=== PATIENT | female | born 1970 | race African-American/Black ===

== ENCOUNTER 2016-12-31 05:46 | Day surgery (SDC) | payer OTHER ==
[~2016-12-31] VITALS: Ht 160 cm; Wt 86.6 kg
[2016-12-31] MEDS ORDERED: ONDANSETRON 4 MG/2 ML VIAL IVP PRN ×2 (07:25)
[2016-12-31] MEDS ORDERED: IBUPROFEN 800 MG TAB PO PRN ×2 (07:25)
[2016-12-31] MEDS ORDERED: ACETAMINOPHEN/CODEINE 300/30MG 1 TAB PO PRN ×2 (07:25)
[2016-12-31] MEDS ORDERED: MORPHINE SULFATE 4 MG/ML SYR IM/IVP PRN ×2 (07:25)
[2016-12-31] MEDS ORDERED: PROPOFOL 200 MG/20 ML VIAL IV ONE (07:45)
[2016-12-31] MEDS ORDERED: fentaNYL 0.05 MG/ML VIAL ONE (08:12)
[2016-12-31] MEDS ORDERED: MIDAZOLAM 2 MG/2 ML VIAL ONE (08:12)
[2016-12-31] MEDS ORDERED: MIDAZOLAM 2 MG/2 ML VIAL IV ONE (08:25)
[2016-12-31] MEDS ORDERED: METOCLOPRAMIDE 10 MG/2 ML INJ VIAL IVP PRN (08:25)
[2016-12-31] MEDS ORDERED: MORPHINE SULFATE 2 MG/ML SYR IVP PRN (08:25)
[2016-12-31] MEDS ORDERED: MORPHINE SULFATE 4 MG/ML SYR IVP PRN ×2 (08:25)
[2016-12-31] MEDS ORDERED: MORPHINE SULFATE 4 MG/ML SYR ONE (09:10)
[2016-12-31] MEDS ORDERED: ONDANSETRON 4 MG/2 ML VIAL ONE (09:14)
== END 2016-12-31 10:23 | disposition home or self-care (01) ==
LOC: MDS 05:46 → MMU 06:01 → MDS 10:23
PROVIDERS: ATTEND Obstetrics & Gynecology
DX: N92.1 Excessive and frequent menstruation with irregular cycle (principal); D25.9 Leiomyoma of uterus, unspecified; I10 Essential (primary) hypertension; J45.909 Unspecified asthma, uncomplicated; M19.90 Unspecified osteoarthritis, unspecified site; F32.9 Major depressive disorder, single episode, unspecified; Z90.721 Acquired absence of ovaries, unilateral; Z98.890 Other specified postprocedural states; Z79.899 Other long term (current) drug therapy
CPT/HCPCS: 58120; J2250; J2270; J2405; J2704; J3010; J7120

== ENCOUNTER 2022-03-26 17:27 | Emergency (ER) | payer OTHER ==
[~2022-03-26] VITALS: Ht 162.6 cm; Wt 84.4 kg
[2022-03-26 17:38] VITALS: BP 145/87
--- NOTE | 2022-03-26 17:55 | NUR ---
Called poision control spoke to Nicolle. No observation time given. Pt may have adverse GI symptoms. No further monitoring needed.
[2022-03-26 18:00] LABS: BASOPHILS % (AUTO) 0.6 % (0.0-2.0); EOSINOPHILS # (AUTO) 0.1 K/uL (0-0.4); EOSINOPHILS % (AUTO) 1.4 % (0.0-4.0); HEMATOCRIT 37.1 % (36-48); HEMOGLOBIN 12.1 g/dL (12.0-16.0); LYMPHOCYTES # (AUTO) 0.9 K/uL (2.5-16.5); MEAN CORPUSCULAR HEMOGLOBIN 28 pg (27-31); MEAN CORPUSCULAR HGB CONC 33 g/dL (33-37); MEAN CORPUSCULAR VOLUME 85.3 fL (80-94); MONOCYTES # (AUTO) 0.4 K/uL (0.8-1.0); MONOCYTES % (AUTO) 7.2 % (1.7-9.3); NEUTROPHILS # (AUTO) 4.8 K/uL (1.8-7.7); NEUTROPHILS % (AUTO) 76.8 % (42.2-75.2); PLATELET COUNT (AUTO) 343 K/uL (140-450); RED BLOOD CELL COUNT(AUTO) 4.35 MIL/uL (4.20-5.40); RED CELL DISTRIBUTION WIDTH 14.7 % (11.6-13.7); WHITE BLOOD COUNT (AUTO) 6.2 K/uL (4.8-10.8)
[2022-03-26 18:11] LABS: BARBITURATE, URINE NEGATIVE ng/ml (NEG <=200); BENZODIAZEPINE, URINE NEGATIVE ng/mL (NEG <=200); CANNABINOID, URINE NEGATIVE ng/mL (NEG <=50); COCAINE, URINE NEGATIVE ng/mL (NEG <=300); OPIATE, URINE NEGATIVE ng/mL (NEG <=2000); PHENCYCLIDINE SCREEN,URINE NEGATIVE ng/mL (NEG <=25)
--- NOTE | 2022-03-26 18:11 | NUR ---
Nicolle and PCR dropped off at lab.
[2022-03-26 18:23] LABS: ACETAMINOPHEN < 0.5 ug/ml (10-30); ALBUMIN 3.7 g/dL (3.4-5.0); ANION GAP 14.7 (8-16); ASPARTATE AMINOTRANSFERASE 21 U/L (15-37); CARBON DIOXIDE 28.4 mmol/L (21-32); CHLORIDE 103 mmol/L (98-107); CREATININE 1.2 mg/dL (0.6-1.3); GFR ARICAN-AMERICAN 61 mL/min (>90); GLUCOSE 99 mg/dL (74-106); POTASSIUM 3.1 mmol/L (3.5-5.1); SALICYLATE < 2.8 mg/dL (2.8-20.0); SODIUM SERUM 143 mmol/L (136-145); TOTAL BILIRUBIN 0.4 mg/dL (0.0-1.0); UREA NITROGEN, BLOOD 12 mg/dL (7-18)
--- NOTE | 2022-03-26 20:00 | NUR ---
RESTING QUIETLY IN ROOM, IN NAD
[2022-03-26] MEDS ORDERED: POTASSIUM CHLORIDE 10 MEQ TABER PO ONE (20:05)
--- NOTE | 2022-03-26 21:52 | NUR ---
AWAITING TELE-PSYCH EVALUATION
--- NOTE | 2022-03-26 22:00 | NUR ---
TELE-PSYCH EVAL IN PROGRESS
--- NOTE | 2022-03-27 00:16 | NUR ---
Packet received for placement. Has been faxed to the following facilities [facility]
--- NOTE | 2022-03-27 02:00 | NUR ---
resting in bed with eyes closed, respirations regular and unlabored
--- NOTE | 2022-03-27 06:00 | NUR ---
CONTINUES TO REST COMFORTABLY WITH EYES CLOSED
--- NOTE | 2022-03-27 06:20 | NUR ---
SPOKE WITH INTAKE NURSE AT [facility]. THEY ACCEPT PT AND PT WILL GO TO ROOM 144. THEY REQUEST THAT WE NOTIFY THEM WHEN ETA IS KNOWN. RECEIVING DR IS DR LÓPEZ. DIRECT LINE # [phone]
--- NOTE | 2022-03-27 08:43 | NUR ---
PT IS HAVING BREAKFAST IN BED.
--- NOTE | 2022-03-27 11:54 | NUR ---
CALLED [facility] AND SPOKE WITH SANDY CAM RN TO INFORM ABOUT THE ETA FOR THE PT ARRIVAL IS 90 MIN PER EMS.
[2022-03-27 11:56] VITALS: BP 112/70
--- NOTE | 2022-03-27 13:49 | NUR ---
The patient's care was reviewed and supervised by Agnes Otero RN.
== END 2022-03-27 11:57 ==
LOC: MED 17:27
DX: R45.851 Suicidal ideations (principal); Z20.822 Contact with and (suspected) exposure to COVID-19
CPT/HCPCS: 36415; 80053; 80305; 84702; 85025; 87426; 87635; 93005; 99285; G0480; G0482

== ENCOUNTER 2022-10-02 12:48 | Emergency (ER) | payer MEDICAID, OTHER ==
[~2022-10-02] VITALS: Ht 167.6 cm; Wt 122.5 kg
[2022-10-02 12:50] VITALS: BP 123/85
[2022-10-02 13:44] LABS: BASOPHILS % (AUTO) 0.3 % (0.0-2.0); EOSINOPHILS # (AUTO) 0.1 K/uL (0-0.4); HEMATOCRIT 37.4 % (36-48); HEMOGLOBIN 12.3 g/dL (12.0-16.0); LYMPHOCYTES # (AUTO) 0.8 K/uL (2.5-16.5); LYMPHOCYTES % (AUTO) 18.7 % (20.5-51.1); MEAN CORPUSCULAR HEMOGLOBIN 27 pg (27-31); MEAN CORPUSCULAR HGB CONC 33 g/dL (33-37); MEAN CORPUSCULAR VOLUME 82.9 fL (80-94); MONOCYTES # (AUTO) 0.3 K/uL (0.8-1.0); MONOCYTES % (AUTO) 6.2 % (1.7-9.3); NEUTROPHILS % (AUTO) 71.8 % (42.2-75.2); PLATELET COUNT (AUTO) 328 K/uL (140-450); RED BLOOD CELL COUNT(AUTO) 4.51 MIL/uL (4.20-5.40); RED CELL DISTRIBUTION WIDTH 14.6 % (11.6-13.7); WHITE BLOOD COUNT (AUTO) 4.2 K/uL (4.8-10.8)
[2022-10-02 14:00] LABS: ALBUMIN 3.7 g/dL (3.4-5.0); ANION GAP 10.8 (8-16); CREATININE 1.1 mg/dL (0.6-1.3); POTASSIUM 3.8 mmol/L (3.5-5.1); TOTAL BILIRUBIN 0.4 mg/dL (0.0-1.0)
[2022-10-02] MEDS ORDERED: KETOROLAC 60 MG/2 ML VIAL IM ONE (15:10)
[2022-10-02] MEDS ORDERED: IBUP-2213 PO (15:38)
[2022-10-02] MEDS ORDERED: ACET-8905 PO (15:38)
[2022-10-02] MEDS ORDERED: ONDA8TAB87 PO (15:38)
[2022-10-02] MEDS ORDERED: MEDR10TA PO (15:38)
--- NOTE | 2022-10-02 15:44 | NUR ---
Patient discharged with v/s stable. Written and verbal after care instructions given and explained. Patient alert, oriented and verbalized understanding of instructions. Ambulatory with steady gait. All questions addressed prior to discharge. ID band removed. Patient advised to follow up with PMD. Rx of PROVERA, NORCO given. Patient educated on indication of medication including possible reaction and side effects. Opportunity to ask questions provided and answered.
== END 2022-10-02 15:44 | disposition home or self-care (01) ==
LOC: MED 12:48
DX: N93.8 Other specified abnormal uterine and vaginal bleeding (principal); D25.9 Leiomyoma of uterus, unspecified; I10 Essential (primary) hypertension; F17.200 Nicotine dependence, unspecified, uncomplicated; Z98.890 Other specified postprocedural states
CPT/HCPCS: 36415; 80053; 85025; 96372; 99283; J1885

== ENCOUNTER 2022-10-13 10:34 | Emergency (ER) | payer MEDICAID ==
[~2022-10-13] VITALS: Ht 165.1 cm; Wt 85.7 kg
[~2022-10-13 10:34] MED LIST: ACET-8905 PO; IBUP-2213 PO; MEDR10TA PO; ONDA8TAB87 PO
[2022-10-13 10:36] VITALS: BP 142/80; PULSE 79; RESP 17; TEMP 97.4; O2SAT 99
[2022-10-13 11:21] LABS: BASOPHILS % (AUTO) 0.6 % (0.0-2.0); EOSINOPHILS # (AUTO) 0.2 K/uL (0-0.4); EOSINOPHILS % (AUTO) 3.1 % (0.0-4.0); HEMATOCRIT 38.5 % (36-48); HEMOGLOBIN 12.6 g/dL (12.0-16.0); LYMPHOCYTES # (AUTO) 0.9 K/uL (2.5-16.5); LYMPHOCYTES % (AUTO) 16.2 % (20.5-51.1); MEAN CORPUSCULAR HEMOGLOBIN 28 pg (27-31); MEAN CORPUSCULAR HGB CONC 33 g/dL (33-37); MEAN CORPUSCULAR VOLUME 84.1 fL (80-94); MONOCYTES # (AUTO) 0.4 K/uL (0.8-1.0); MONOCYTES % (AUTO) 7.4 % (1.7-9.3); NEUTROPHILS # (AUTO) 3.9 K/uL (1.8-7.7); NEUTROPHILS % (AUTO) 72.7 % (42.2-75.2); PLATELET COUNT (AUTO) 306 K/uL (140-450); RED BLOOD CELL COUNT(AUTO) 4.57 MIL/uL (4.20-5.40); RED CELL DISTRIBUTION WIDTH 15.2 % (11.6-13.7); WHITE BLOOD COUNT (AUTO) 5.4 K/uL (4.8-10.8)
[2022-10-13 11:33] LABS: ANION GAP 14.4 (8-16); CARBON DIOXIDE 26.6 mmol/L (21-32); CREATININE 1.2 mg/dL (0.6-1.3)
[2022-10-13 13:35] VITALS: O2SAT 99
--- NOTE | 2022-10-13 13:36 | NUR ---
Patient discharged with v/s stable. Written and verbal after care instructions given and explained. Patient verbalized understanding. Ambulatory with steady gait. All questions addressed prior to discharge. Advised to follow up with PMD.
== END 2022-10-13 13:36 | disposition home or self-care (01) ==
LOC: MED 10:34
DX: N93.8 Other specified abnormal uterine and vaginal bleeding (principal); I10 Essential (primary) hypertension; N18.9 Chronic kidney disease, unspecified; Z79.899 Other long term (current) drug therapy
CPT/HCPCS: 36415; 80048; 85025; 99283

== ENCOUNTER 2023-04-23 13:53 | Emergency (ER) | payer MEDICAID ==
[~2023-04-23] VITALS: Ht 162.6 cm; Wt 68.0 kg
[2023-04-23 13:56] VITALS: BP 118/83; PULSE 83; RESP 16; TEMP 97.8; O2SAT 100
[2023-04-23] MEDS ORDERED: CLOT1CRE82 TP ×2 (14:32→14:51)
== END 2023-04-23 15:57 | disposition home or self-care (01) ==
LOC: MED 13:53
DX: L30.4 Erythema intertrigo (principal); M79.602 Pain in left arm; M79.601 Pain in right arm; Z79.899 Other long term (current) drug therapy
CPT/HCPCS: 73130; 99283

== ENCOUNTER 2023-06-08 17:56 | Emergency (ER) | payer MEDICAID ==
[~2023-06-08] VITALS: Ht 162.6 cm; Wt 68.0 kg
[~2023-06-08 17:56] MED LIST changes: +CLOT1CRE82 TP
[2023-06-08 17:58] VITALS: BP 128/78; PULSE 87; RESP 16; TEMP 96.9; O2SAT 100
[2023-06-08 18:00] VITALS: O2SAT 100
[2023-06-08] MEDS ORDERED: AMLO2.5T PO (18:01)
[2023-06-08] MEDS ORDERED: FERR325E14 PO (18:01)
[2023-06-08 18:44] VITALS: TEMP 96.9
[2023-06-08 19:07] LABS: APPEARANCE,URINE CLEAR (CLEAR); BILIRUBIN,URINE NEGATIVE (NEGATIVE); BLOOD, URINE TRACE-I (NEGATIVE); COLOR,URINE YELLOW (YELLOW); LEUKOCYTE ESTERASE ,URINE 2+ (NEGATIVE); NITRITE, URINE NEGATIVE (NEGATIVE); PROTEIN,URINE NEGATIVE (NEGATIVE); UGLUCOSE NEGATIVE (NEGATIVE); UROBILINOGEN,URINE 0.2 EU/dL (0.2 - 1)
[2023-06-08 19:13] LABS: BASOPHILS # (AUTO) 0.1 K/uL (0.00-0.22); BASOPHILS % (AUTO) 1.5 % (0.0-2.0); EOSINOPHILS # (AUTO) 0.2 K/uL (0-0.4); EOSINOPHILS % (AUTO) 4.7 % (0.0-4.0); HEMOGLOBIN 12.2 g/dL (12.0-16.0); LYMPHOCYTES # (AUTO) 0.9 K/uL (2.5-16.5); LYMPHOCYTES % (AUTO) 24.4 % (20.5-51.1); MEAN CORPUSCULAR HEMOGLOBIN 28 pg (27-31); MEAN CORPUSCULAR HGB CONC 33 g/dL (33-37); MEAN CORPUSCULAR VOLUME 85.9 fL (80-94); MONOCYTES # (AUTO) 0.3 K/uL (0.8-1.0); MONOCYTES % (AUTO) 7.7 % (1.7-9.3); NEUTROPHILS # (AUTO) 2.3 K/uL (1.8-7.7); NEUTROPHILS % (AUTO) 61.7 % (42.2-75.2); PLATELET COUNT (AUTO) 285 K/uL (140-450); RED BLOOD CELL COUNT(AUTO) 4.31 MIL/uL (4.20-5.40); RED CELL DISTRIBUTION WIDTH 13.7 % (11.6-13.7); WHITE BLOOD COUNT (AUTO) 3.8 K/uL (4.8-10.8)
[2023-06-08 19:25] LABS: RBC,URINE 0-5 /HPF (0-5)
[2023-06-08 19:26] LABS: BACTERIA,URINE 1+ /HPF (None Seen); MUCUS,URINE None Seen /LPF (None Seen); SQUAMOUS EPITHELIAL CELL,UR 0-3 (FEW) /LPF (0-3 (FEW))
[2023-06-08 19:56] LABS: ALANINE AMINOTRANSFERASE 15 U/L (12-78); ALBUMIN 3.2 g/dL (3.4-5.0); ALKALINE PHOSPHATASE 79 U/L (50-136); ASPARTATE AMINOTRANSFERASE 11 U/L (15-37); BILIRUBIN,DIRECT 0.1 mg/dL (0.0-0.3); TOTAL BILIRUBIN 0.1 mg/dL (0.0-1.0); TOTAL PROTEIN, SERUM 7.4 g/dL (6.4-8.2)
[2023-06-08 20:08] LABS: ANION GAP 10.4 (8-16); CALCIUM 8.7 mg/dL (8.5-10.1); CARBON DIOXIDE 26.5 mmol/L (21-32); CREATININE 1.1 mg/dL (0.6-1.3); POTASSIUM 3.9 mmol/L (3.5-5.1)
[2023-06-08] MEDS: FUROSEMIDE 40 MG TAB PO ONE (20:30)
[2023-06-08] MEDS ORDERED: CEPH-588 PO (20:42)
[2023-06-08 21:30] VITALS: BP 110/64; PULSE 75; RESP 14; O2SAT 100
== END 2023-06-08 21:46 | disposition home or self-care (01) ==
LOC: MED 17:56
DX: E11.22 Type 2 diabetes mellitus with diabetic chronic kidney disease (principal); I12.9 Hypertensive chronic kidney disease with stage 1 through stage 4 chronic kidney disease, or unspecified chronic kidney disease; N18.9 Chronic kidney disease, unspecified; N30.00 Acute cystitis without hematuria; Z79.899 Other long term (current) drug therapy
CPT/HCPCS: 36415; 71045; 80048; 80076; 81001; 83880; 84484; 85025; 87086; 93005; 99285; Q0092

== ENCOUNTER 2023-08-27 12:34 | Emergency (ER) | payer MEDICAID ==
[~2023-08-27] VITALS: Ht 162.6 cm; Wt 68.0 kg
[~2023-08-27 12:34] MED LIST changes: -ACET-8905 PO; +AMLO2.5T PO; +CEPH-588 PO; -CLOT1CRE82 TP; +FERR325E14 PO; -IBUP-2213 PO; -MEDR10TA PO; -ONDA8TAB87 PO
[2023-08-27 12:35] VITALS: BP 114/76; PULSE 66; RESP 16; TEMP 98.1; O2SAT 100
[2023-08-27] MEDS ORDERED: FURO-572 PO (15:50)
[2023-08-27 16:16] VITALS: BP 121/72; PULSE 67; RESP 12; TEMP 98.1; O2SAT 100
== END 2023-08-27 16:16 | disposition home or self-care (01) ==
LOC: MED 12:34
DX: R07.9 Chest pain, unspecified (principal); R60.0 Localized edema; I12.9 Hypertensive chronic kidney disease with stage 1 through stage 4 chronic kidney disease, or unspecified chronic kidney disease; N18.30 Chronic kidney disease, stage 3 unspecified; Z79.899 Other long term (current) drug therapy
CPT/HCPCS: 71045; 93005; 99283

== ENCOUNTER 2023-10-13 20:09 | Emergency (ER) | payer MEDICAID ==
[~2023-10-13] VITALS: Ht 162.6 cm; Wt 90.7 kg
[2023-10-13 20:09] VITALS: BP 110/60; PULSE 91; RESP 18; TEMP 97.6; O2SAT 97
[~2023-10-13 20:09] MED LIST changes: +FURO-572 PO
[2023-10-13 23:39] VITALS: O2SAT 99
[2023-10-13 23:57] LABS: BASOPHILS % (AUTO) 0.4 % (0.0-2.0); EOSINOPHILS # (AUTO) 0.3 K/uL (0-0.4); EOSINOPHILS % (AUTO) 3.1 % (0.0-4.0); HEMATOCRIT 34.1 % (36-48); HEMOGLOBIN 11.3 g/dL (12.0-16.0); LYMPHOCYTES # (AUTO) 1.3 K/uL (2.5-16.5); LYMPHOCYTES % (AUTO) 14.4 % (20.5-51.1); MEAN CORPUSCULAR HEMOGLOBIN 28 pg (27-31); MEAN CORPUSCULAR HGB CONC 33 g/dL (33-37); MEAN CORPUSCULAR VOLUME 85.2 fL (80-94); MONOCYTES # (AUTO) 0.8 K/uL (0.8-1.0); MONOCYTES % (AUTO) 8.9 % (1.7-9.3); NEUTROPHILS # (AUTO) 6.4 K/uL (1.8-7.7); NEUTROPHILS % (AUTO) 73.2 % (42.2-75.2); PLATELET COUNT (AUTO) 359 K/uL (140-450); RED CELL DISTRIBUTION WIDTH 12.6 % (11.6-13.7); WHITE BLOOD COUNT (AUTO) 8.8 K/uL (4.8-10.8)
[2023-10-14] MEDS: KETOROLAC 30 MG/ML VIAL IM ONE (00:18)
[2023-10-14 00:19] LABS: ANION GAP 13.6 (8-16); CARBON DIOXIDE 27.5 mmol/L (21-32); CREATININE 1.4 mg/dL (0.6-1.3); POTASSIUM 3.1 mmol/L (3.5-5.1)
[2023-10-14 01:09] VITALS: BP 112/60; PULSE 65; RESP 16; TEMP 98.1; O2SAT 98
[2023-10-14] MEDS: POTASSIUM CHLORIDE 10 MEQ TABER PO ONE (01:09)
== END 2023-10-14 01:09 | disposition home or self-care (01) ==
LOC: MED 20:09
DX: R60.9 Edema, unspecified (principal); E87.6 Hypokalemia; R53.1 Weakness; I12.9 Hypertensive chronic kidney disease with stage 1 through stage 4 chronic kidney disease, or unspecified chronic kidney disease; N18.30 Chronic kidney disease, stage 3 unspecified; Z79.899 Other long term (current) drug therapy
CPT/HCPCS: 36415; 80048; 81025; 85025; 96372; 99283; J1885

== ENCOUNTER 2023-10-14 08:48 | Emergency (ER) | payer MEDICAID ==
[~2023-10-14] VITALS: Ht 162.6 cm; Wt 64.6 kg
[2023-10-14 08:59] VITALS: BP 111/60; PULSE 59; RESP 17; TEMP 97.9; O2SAT 100
[2023-10-14] MEDS: ACETAMINOPHEN/CODEINE 300/30MG 1 TAB PO ONE (11:17)
== END 2023-10-14 11:42 | disposition home or self-care (01) ==
LOC: MED 08:48
DX: G89.29 Other chronic pain (principal); M79.602 Pain in left arm; M79.601 Pain in right arm; M79.605 Pain in left leg; M79.604 Pain in right leg; M25.572 Pain in left ankle and joints of left foot; M25.571 Pain in right ankle and joints of right foot; I12.9 Hypertensive chronic kidney disease with stage 1 through stage 4 chronic kidney disease, or unspecified chronic kidney disease; N18.30 Chronic kidney disease, stage 3 unspecified; Z79.2 Long term (current) use of antibiotics; Z79.899 Other long term (current) drug therapy; Z59.00 Homelessness unspecified
CPT/HCPCS: 99282

== ENCOUNTER 2023-11-12 21:36 | Emergency (ER) | payer MEDICAID ==
[~2023-11-12] VITALS: Ht 162.6 cm; Wt 64.4 kg
[2023-11-12 22:19] VITALS: BP 128/68; PULSE 64; RESP 16; TEMP 97.9; O2SAT 99
[2023-11-13] MEDS: AMITRIPTYLINE 10 MG TAB PO SCH (00:50)
[2023-11-13] MEDS: CYCLOBENZAPRINE 10 MG TAB PO ONE (00:50)
== END 2023-11-13 00:58 | disposition home or self-care (01) ==
LOC: MED 21:36
DX: M79.7 Fibromyalgia (principal); I12.0 Hypertensive chronic kidney disease with stage 5 chronic kidney disease or end stage renal disease; E11.22 Type 2 diabetes mellitus with diabetic chronic kidney disease; N18.30 Chronic kidney disease, stage 3 unspecified; Z79.899 Other long term (current) drug therapy
CPT/HCPCS: 99283

== ENCOUNTER 2023-11-14 02:04 | Emergency (ER) | payer MEDICAID ==
[~2023-11-14] VITALS: Ht 162.6 cm; Wt 64.4 kg
[2023-11-14 02:19] VITALS: BP 117/75; PULSE 76; RESP 18; TEMP 97.2; O2SAT 99
[2023-11-14] MEDS ORDERED: AMITRIPTYLINE 10 MG TAB ONE (04:16)
[2023-11-14 04:19] VITALS: BP 117/75; PULSE 76; RESP 18; TEMP 97.2; O2SAT 99
[2023-11-14] MEDS: CYCLOBENZAPRINE 10 MG TAB PO ONE (04:19)
[2023-11-14] MEDS ORDERED: AMITRIPTYLINE 10 MG TAB PO SCH (21:00)
== END 2023-11-14 04:19 | disposition home or self-care (01) ==
LOC: MED 02:04
DX: M79.7 Fibromyalgia (principal); E11.22 Type 2 diabetes mellitus with diabetic chronic kidney disease; I12.9 Hypertensive chronic kidney disease with stage 1 through stage 4 chronic kidney disease, or unspecified chronic kidney disease; N18.30 Chronic kidney disease, stage 3 unspecified; Z79.899 Other long term (current) drug therapy
CPT/HCPCS: 99283

== ENCOUNTER 2023-11-17 22:15 | Emergency (ER) | payer MEDICAID ==
[~2023-11-17] VITALS: Ht 162.6 cm; Wt 64.4 kg
[2023-11-17 22:15] VITALS: BP 119/73; PULSE 83; RESP 16; TEMP 97.4; O2SAT 96
[2023-11-17 22:45] VITALS: BP 119/73; PULSE 83; RESP 16; TEMP 97.4; O2SAT 97
[2023-11-17 22:48] VITALS: O2SAT 96
[2023-11-17 23:03] LABS: BASOPHILS % (AUTO) 0.5 % (0.0-2.0); EOSINOPHILS # (AUTO) 0.2 K/uL (0-0.4); EOSINOPHILS % (AUTO) 2.9 % (0.0-4.0); HEMATOCRIT 31.6 % (36-48); HEMOGLOBIN 10.4 g/dL (12.0-16.0); LYMPHOCYTES # (AUTO) 1.1 K/uL (2.5-16.5); LYMPHOCYTES % (AUTO) 19.4 % (20.5-51.1); MEAN CORPUSCULAR HEMOGLOBIN 29 pg (27-31); MEAN CORPUSCULAR HGB CONC 33 g/dL (33-37); MEAN CORPUSCULAR VOLUME 86.2 fL (80-94); MONOCYTES # (AUTO) 0.6 K/uL (0.8-1.0); MONOCYTES % (AUTO) 9.8 % (1.7-9.3); NEUTROPHILS % (AUTO) 67.4 % (42.2-75.2); PLATELET COUNT (AUTO) 304 K/uL (140-450); RED BLOOD CELL COUNT(AUTO) 3.66 MIL/uL (4.20-5.40); WHITE BLOOD COUNT (AUTO) 5.9 K/uL (4.8-10.8)
[2023-11-17 23:17] LABS: ANION GAP 14.7 (8-16); CALCIUM 9.7 mg/dL (8.5-10.1); CARBON DIOXIDE 24.4 mmol/L (21-32); CREATININE 1.3 mg/dL (0.6-1.3); POTASSIUM 4.1 mmol/L (3.5-5.1)
[2023-11-17 23:23] LABS: ALBUMIN 3.6 g/dL (3.4-5.0); BILIRUBIN,DIRECT 0.1 mg/dL (0.0-0.3); TOTAL BILIRUBIN 0.8 mg/dL (0.0-1.0); TOTAL PROTEIN, SERUM 7.2 g/dL (6.4-8.2)
[2023-11-18] MEDS: oxyCODONE/APAP 5/325 MG 1 TAB TAB PO ONE (01:46)
== END 2023-11-18 01:40 | disposition home or self-care (01) ==
LOC: MED 22:15
DX: M79.18 Myalgia, other site (principal); I12.9 Hypertensive chronic kidney disease with stage 1 through stage 4 chronic kidney disease, or unspecified chronic kidney disease; N18.30 Chronic kidney disease, stage 3 unspecified; Z79.899 Other long term (current) drug therapy
CPT/HCPCS: 36415; 71045; 80048; 80076; 83880; 85025; 93005; 99285; Q0092

== ENCOUNTER 2023-11-24 19:42 | Emergency (ER) | payer MEDICAID ==
[~2023-11-24] VITALS: Ht 157.5 cm; Wt 77.1 kg
[2023-11-24 19:49] VITALS: BP 114/65; PULSE 72; RESP 16; TEMP 97.4; O2SAT 99
[2023-11-24] MEDS: IBUPROFEN 600 MG TAB PO ONE (20:31)
[2023-11-24] MEDS ORDERED: IBUP-2213 PO (21:21)
[2023-11-24] MEDS ORDERED: LOTC TP (21:21)
== END 2023-11-24 21:35 | disposition home or self-care (01) ==
LOC: MED 19:42
DX: S80.02XA Contusion of left knee, initial encounter (principal); S80.01XA Contusion of right knee, initial encounter; B35.4 Tinea corporis; I12.9 Hypertensive chronic kidney disease with stage 1 through stage 4 chronic kidney disease, or unspecified chronic kidney disease; N18.30 Chronic kidney disease, stage 3 unspecified; Z79.899 Other long term (current) drug therapy; W01.0XXA Fall on same level from slipping, tripping and stumbling without subsequent striking against object, initial encounter; Y92.89 Other specified places as the place of occurrence of the external cause; Y93.89 Activity, other specified; Y99.8 Other external cause status
CPT/HCPCS: 73140; 73560; 99284

== ENCOUNTER 2023-11-29 01:30 | Emergency (ER) | payer MEDICAID ==
[~2023-11-29] VITALS: Ht 165.1 cm; Wt 54.4 kg
[~2023-11-29 01:30] MED LIST changes: +IBUP-2213 PO; +LOTC TP
[2023-11-29 01:32] VITALS: BP 160/80; PULSE 100; RESP 16; TEMP 98.5; O2SAT 100
== END 2023-11-29 03:59 | disposition home or self-care (01) ==
LOC: MED 01:30
DX: M79.661 Pain in right lower leg (principal); T63.301A Toxic effect of unspecified spider venom, accidental (unintentional), initial encounter; I12.9 Hypertensive chronic kidney disease with stage 1 through stage 4 chronic kidney disease, or unspecified chronic kidney disease; N18.30 Chronic kidney disease, stage 3 unspecified; Z79.1 Long term (current) use of non-steroidal anti-inflammatories (NSAID); Z79.2 Long term (current) use of antibiotics; Z79.899 Other long term (current) drug therapy; Y92.89 Other specified places as the place of occurrence of the external cause
CPT/HCPCS: 99283

== ENCOUNTER 2023-12-02 21:58 | Emergency (ER) | payer MEDICAID ==
[~2023-12-02] VITALS: Ht 162.6 cm; Wt 61.2 kg
[2023-12-02 22:01] VITALS: BP 112/70; PULSE 85; RESP 14; TEMP 97.6; O2SAT 98
[2023-12-03] MEDS: FUROSEMIDE 40 MG TAB PO ONE ×2 (01:55)
== END 2023-12-03 05:58 | disposition home or self-care (01) ==
LOC: MED 21:58
DX: R60.0 Localized edema (principal); M79.641 Pain in right hand; M79.642 Pain in left hand; I12.9 Hypertensive chronic kidney disease with stage 1 through stage 4 chronic kidney disease, or unspecified chronic kidney disease; N18.30 Chronic kidney disease, stage 3 unspecified; Z79.899 Other long term (current) drug therapy
CPT/HCPCS: 99283

== ENCOUNTER 2023-12-18 20:31 | Emergency (ER) | payer MEDICAID ==
[~2023-12-18] VITALS: Ht 154.9 cm; Wt 72.6 kg
[2023-12-18 20:34] VITALS: BP 115/75; PULSE 96; RESP 18; TEMP 97.2; O2SAT 99
--- NOTE | 2023-12-18 20:37 | NUR ---
PT BIBA TO BED 4
--- NOTE | 2023-12-18 20:38 | NUR ---
[facility]ORA FROM [facility] [address]. RECENT DX OF PNA AT [place]. HAS NOT STARTED ABX RX YET. NO PAIN.
[2023-12-18 20:40] VITALS: TEMP 97.2
--- NOTE | 2023-12-18 20:54 | NUR ---
Patient being evaluated by physician at bedside.
--- NOTE | 2023-12-18 21:03 | NUR ---
X-RAY AT BEDSIDE.
[2023-12-18 22:20] VITALS: BP 102/55; PULSE 76; RESP 16; O2SAT 100
--- NOTE | 2023-12-18 22:20 | NUR ---
Patient discharged. Written and verbal after care instructions given and explained. Patient verbalized understanding. Ambulatory with walker. All questions addressed prior to discharge. Advised to follow up with PMD.
== END 2023-12-18 22:20 | disposition home or self-care (01) ==
LOC: MED 20:31
DX: R07.9 Chest pain, unspecified (principal); I12.9 Hypertensive chronic kidney disease with stage 1 through stage 4 chronic kidney disease, or unspecified chronic kidney disease; N18.30 Chronic kidney disease, stage 3 unspecified; Z79.899 Other long term (current) drug therapy
CPT/HCPCS: 71045; 99283; Q0092

== ENCOUNTER 2023-12-29 21:39 | Emergency (ER) | payer MEDICAID ==
[~2023-12-29] VITALS: Ht 162.6 cm; Wt 122.5 kg
[2023-12-29 21:48] VITALS: BP 128/78; PULSE 72; RESP 16; TEMP 98; O2SAT 97
[2023-12-30 01:02] VITALS: BP 128/78; PULSE 72; RESP 16; TEMP 98; O2SAT 97
[2023-12-30] MEDS ORDERED: KETOROLAC 60 MG/2 ML VIAL IM ONE (01:04)
[2023-12-30] MEDS: KETOROLAC 60 MG/2 ML VIAL IM ONE ×2 (01:08→01:09)
== END 2023-12-30 01:30 | disposition home or self-care (01) ==
LOC: MED 21:39
DX: M79.7 Fibromyalgia (principal); I12.9 Hypertensive chronic kidney disease with stage 1 through stage 4 chronic kidney disease, or unspecified chronic kidney disease; N18.30 Chronic kidney disease, stage 3 unspecified; Z79.899 Other long term (current) drug therapy
CPT/HCPCS: 96372; 99283; J1885